=== PATIENT | male | born 1965 | race Two or more races ===

== ENCOUNTER 2021-02-25 03:42 | Observation (INO) ==
[2021-02-25 05:02] LABS: Basophils % 0.4 % (0.0-0.8); Eosinophils # 0.1 10*3/uL (0.0-0.87); Eosinophils % 2.6 % (0.00-10.9); Hematocrit 28.5 VOL% (42.0-52.0); Hemoglobin 7.9 GM/DL (14.0-18.0); Immature Granulocytes % 0.9 %; Immature Granulocytes Absolute 0.02 #; Lymphocytes # 0.4 10*3/uL (1.4-4.0); Lymphocytes % 17.9 % (21.2-54.2); Mean Corpuscular HGB Conc 27.7 GM/DL (32-36); Monocytes % 12.3 % (1.7-12.7); Neutrophils % 65.9 % (38.7-73.9); Platelet Count 85 T/CUMM (130-400); Red Blood Count 4.32 MC/CUMM (3.8-5.5); Red Cell Distribution Width 20.2 % (9.3-17.3); White Blood Count 2.4 T/CUMM (4-12)
[2021-02-25 05:11] LABS: Alanine Aminotransferase 27 U/L (16-61); Albumin 3.3 G/DL (3.4-5.0); Alkaline Phosphatase 124 U/L (45-117); Aspartate Amino Transferase 26 U/L (0-37); Blood Urea Nitrogen 12 MG/DL (7-18); Calcium 8.5 MG/DL (8.5-10.1); Carbon Dioxide 20 MMOL/L (21-32); Estimated Glom Filtration Rate 84 ML/MIN; Glucose 293 MG/DL (74-106); Osmolality,Calculated 293.1 MOS/KG (273-304); Potassium 3.3 MMOL/L (3.5-5.1); Sodium 142 MMOL/L (136-145)
[2021-02-25 05:19] LABS: Microcytosis 1+; Platelet Estimate Decreased
[2021-02-25 05:41] LABS: Bilirubin,Urine Negative (Negative); Blood, Urine Negative (Negative); Glucose,Urine (UA) >=500 mg/dL (Negative); Ketones,Urine 20 mg/dL (Negative); Mucus,Urine Occasional /LPF (Occasional); Nitrite,Urine Negative (Negative); Protein,Urine Negative; RBC,Urine 1 /HPF (0-4); Squamous Epithelial Cell,Urine Occasional /HPF (0-10); Urine Appearance CLEAR (Clear); Urine Color Yellow (Yellow); Urine Specific Gravity 1.033 (1.001-1.035); Urine Urobilinogen < 2.0 EU/DL (0.2-1.0)
[2021-02-25 05:53] LABS: Barbiturates Screen,Urine Negative (Negative); Benzodiazepines Screen,Urine Negative (Negative); Cannabinoid Screen,Urine Negative (Negative); Opiate Screen,Urine Negative (Negative); Phencyclidine Screen,Urine Negative (Negative)
[2021-02-25 06:09] LABS: Anisocytosis 1+; Hypochromasia Slight; Ovalocytes Few
[2021-02-25] MEDS ORDERED: DEXTROSE 50% 25 GM/50 ML VIAL IV PRN ×2 (06:14→16:22)
[2021-02-25] MEDS ORDERED: hydrALAZINE 20 MG/1 ML VIAL IV PRN (06:14)
[2021-02-25] MEDS ORDERED: ONDANSETRON 4 MG/2 ML VIAL IV PRN (06:14)
[2021-02-25] MEDS ORDERED: GLUCAGON 1 MG VIAL IM PRN ×2 (06:14→16:22)
[2021-02-25] MEDS ORDERED: POTASSIUM CHLORIDE 20 MEQ TABLET PO PRN (06:27)
[2021-02-25] MEDS ORDERED: MAGNESIUM SULF RIDER 4 GM/100 ML PREMIX IV PRN (06:27)
[2021-02-25] MEDS ORDERED: POTASSIUM CHLORIDE RIDER 10 MEQ/100 ML PREMIX IV PRN (06:27)
[2021-02-25] MEDS ORDERED: MAGNESIUM SULF RIDER 2 GM/50 ML PREMIX IV PRN (06:27)
[2021-02-25] MEDS ORDERED: ACETAMINOPHEN 325 MG TABLET PO PRN (06:30)
[2021-02-25] MEDS ORDERED: ENOXAPARIN 40 MG/0.4 ML SYRINGE SUBCUT SCH (06:30)
[2021-02-25] MEDS: SODIUM CHLORIDE 0.45% 1,000 ML IV SCH ×2 (07:25→14:11)
[2021-02-25 07:27] LABS: INR 1.1; PT Patient Result 12.1 SECS (10.5-12.0)
[2021-02-25] MEDS: INSULIN REGULAR 100 UNIT/ML SUBCUT SCH ×4 (07:30→21:28)
[2021-02-25 08:14] LABS: Risk Ratio 2.51; VLDL Cholesterol 16.8 MG/DL
[2021-02-25] MEDS: PANTOPRAZOLE 40 MG TABLET PO SCH (09:16)
[2021-02-25] MEDS: lisinopriL 10 MG TABLET PO SCH (09:16)
[2021-02-25] MEDS: LACTULOSE 20 GM/30 ML UDCUP PO SCH ×2 (12:00→17:10)
[2021-02-26] MEDS: LACTULOSE 20 GM/30 ML UDCUP PO SCH ×3 (00:17→11:36)
[2021-02-26] MEDS: SODIUM CHLORIDE 0.45% 1,000 ML IV SCH (04:30)
[2021-02-26 05:05] LABS: Basophils % 0.6 % (0.0-0.8); Eosinophils # 0.2 10*3/uL (0.0-0.87); Eosinophils % 5.9 % (0.00-10.9); Hematocrit 27.1 VOL% (42.0-52.0); Immature Granulocytes % 0.3 %; Immature Granulocytes Absolute 0.01 #; Lymphocytes # 0.9 10*3/uL (1.4-4.0); Lymphocytes % 29.1 % (21.2-54.2); Mean Corpuscular HGB Conc 27.7 GM/DL (32-36); Mean Corpuscular Volume 66.7 FL (87-102); Monocytes % 19.4 % (1.7-12.7); NRBC # 0.04 10*3/uL; Neutrophils % 44.7 % (38.7-73.9); Platelet Count 74 T/CUMM (130-400); Red Blood Count 4.06 MC/CUMM (3.8-5.5); Red Cell Distribution Width 20.5 % (9.3-17.3); White Blood Count 3.2 T/CUMM (4-12)
[2021-02-26 05:09] LABS: Hemoglobin 7.5 GM/DL (14.0-18.0)
[2021-02-26 05:16] LABS: Albumin 2.7 G/DL (3.4-5.0); Bilirubin,Total 1.3 MG/DL (0.20-1.00); Potassium 3.5 MMOL/L (3.5-5.1); Thyroid Stimulating Hormone 0.87 uIU/ml (0.358-3.74); Total Protein 6.5 G/DL (6.4-8.2)
[2021-02-26 05:21] LABS: Eosinophils 5 % (0-10); Hypochromasia 1+; Lymphocytes 32 % (20-55); Microcytosis 1+; Platelet Estimate Decreased; Segmented Neutrophils 48 % (50-85); Total Cells Counted 100
[2021-02-26 08:02] LABS: Folate 13.6 NG/ML (5.38-24.0)
[2021-02-26 08:47] LABS: % Iron Saturation 9.6 % (18-50); Ferritin 7.5 ng/mL (26-388)
[2021-02-26] MEDS: PANTOPRAZOLE 40 MG TABLET PO SCH (08:54)
[2021-02-26] MEDS: lisinopriL 10 MG TABLET PO SCH (08:54)
[2021-02-26] MEDS: INSULIN REGULAR 100 UNIT/ML SUBCUT SCH ×2 (08:56→12:35)
[2021-02-26] MEDS ORDERED: FERRIC GLUCONATE COMPLEX 125 MG in SODIUM CHLORIDE 0.9% 100 ML IV ONE (10:00)
[2021-02-26 11:31] VITALS: BP 128/63
[2021-02-26] MEDS ORDERED: metFORMIN 500 MG TABLET PO SCH (17:00)
== END 2021-02-26 14:00 | disposition home or self-care (01) ==
LOC: SUATTDRO → N.EDINP 03:42 → N.ED 03:42 → N.3E 13:35
PROVIDERS: ADMIT Internal Medicine; ATTEND Internal Medicine